=== PATIENT | male | born 1995 | race Caucasian/White ===

== ENCOUNTER 2023-01-26 16:45 | Emergency (ER) | payer OTHER, SELFPAY ==
[2023-01-26 16:47] VITALS: BP 158/101; PULSE 98; RESP 16; TEMP 36.7; O2SAT 100
--- NOTE | 2023-01-26 17:17 | ED.GENADULT ---
HPI - General Adult General Chief complaint: Upper Respiratory Infection Stated complaint: Sore Throat Source: patient Mode of arrival: ambulatory Limitations: no limitations History of Present Illness HPI narrative: Patient presents for evaluation of sore throat for the last 2 days. He also reports that thick clear postnasal drainage. He denies any fever, chills, nausea, vomiting, otalgia, cough, shortness of breath. His mother recently had a lung transplant and wanted to ensure that he did not expose her to strep in the event that he did test positive for it. He does not smoke. He is not taking any medication for his symptoms. No additional complaints or concerns. Related Data Home Medications Medication Instructions Recorded Confirmed losartan 50 mg tablet 50 mg PO DAILY 01/26/23 01/26/23 pantoprazole 40 mg tablet,delayed 40 mg PO DAILY 01/26/23 01/26/23 release sertraline 50 mg tablet 50 mg PO DAILY 01/26/23 01/26/23 Allergies Allergy/AdvReac Type Severity Reaction Status Date / Time No Known Allergies Allergy Unverified 01/27/19 12:15 Review of Systems Review of Systems: CONSTITUTIONAL: Denies fever, chills, or sweats. EYES: Denies visual changes, redness, or discharge. ENT: Reports sore and thick clear postnasal drainage. Denies otalgia. CARDIOVASCULAR: Denies chest pain, palpitations, or edema. RESPIRATORY: Denies cough or dyspnea. GASTROINTESTINAL: Denies abdominal pain, nausea, vomiting, or diarrhea. GENITOURINARY: Denies dysuria or hematuria. SKIN: Denies rash or itching. MUSCULOSKELETAL: Denies back pain, joint pain, or myalgia. NEUROLOGIC: Denies headache, numbness, dizziness, or weakness. PSYCHIATRIC: Denies anxiety or depression. [facility] Past Medical History Medical History No pertinent past medical history Surgical History Surgical History No pertinent past surgical history Family History Family History Mother Lung transplanted Social History Social History Smoking status: Never smoker Alcohol intake: current Alcohol use details: social on weekends Substance use: never Gender identity (if verbalized by the patient): Male Spiritual care concerns: No Exam Narrative: GENERAL: Well-appearing, well-nourished, and in no acute distress. HEAD: Normocephalic, atraumatic. EYES: PERRLA and EOMI. ENT: Nares clear, no rhinorrhea or epistaxis. Mucous membranes moist. Posterior pharyngeal erythema without exudate. Uvula is midline. Bilateral TMs pearly butts nonbulging NECK: Supple. No adenopathy or masses. No carotid bruits or JVD CHEST: Clear to auscultation. No respiratory distress. No wheezes rales or rhonchi HEART: Regular rate and rhythm. No murmur heard. Normal peripheral pulses. ABDOMEN: Soft, nontender, nondistended, normal active bowel sounds. EXTREMITIES: Normal range of motion. No edema. SKIN: Warm, dry, no rash. NEURO: No focal deficits. Alert and oriented x3. PSYCH: Normal mood and affect. Course Course Emergency Course: This is a 27-year-old male who presented for evaluation of sore throat. Rapid strep negative. Exam consistent with acute viral syndrome. [id number] agents such as Cepacol for symptom management. Follow up with primary provider. Go to the ER for worsening symptoms. Patient agreement with plan of care. Level of Care: Express Care Visit Vital Signs Vital signs: Vital Signs Temperature 36.7 C 01/26/23 16:47 Pulse Rate 98 01/26/23 16:47 Respiratory Rate 16 01/26/23 16:47 Blood Pressure 158/101 H 01/26/23 16:47 Pulse Oximetry 100 01/26/23 16:47 Oxygen Delivery Room Air 01/26/23 16:47 Temperature 36.7 C 01/26/23 16:47 Pulse Rate 98 01/26/23 16:47 Respiratory Rate 1
== END 2023-01-26 17:12 | disposition home or self-care (01) ==
PROVIDERS: Emergency Provider Nurse Practitioner; PCP Internal Medicine
DX: J02.9 Acute pharyngitis, unspecified (principal)
CPT/HCPCS: 87081; 87880; 99203; G0463

== ENCOUNTER 2023-10-31 10:14 | Emergency (ER) | payer SELFPAY ==
[2023-10-31 10:20] VITALS: BP 134/80; PULSE 64; RESP 20; TEMP 36.8; O2SAT 98
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
== END 2023-10-31 10:45 | disposition home or self-care (01) ==
PROVIDERS: Emergency Provider Nurse Practitioner Family; PCP Internal Medicine
DX: S05.02XA Injury of conjunctiva and corneal abrasion without foreign body, left eye, initial encounter (principal); W22.8XXA Striking against or struck by other objects, initial encounter; I10 Essential (primary) hypertension; K21.9 Gastro-esophageal reflux disease without esophagitis
CPT/HCPCS: 99203; A9270; G0463